=== PATIENT | male | born 1990 | race African-American/Black ===

== ENCOUNTER 2022-11-26 08:15 | Inpatient (IN) ==
[2022-11-26] MEDS ORDERED: SODIUM CHLORIDE 0.9% 1,000 ML IV STA (08:33)
[2022-11-26] MEDS ORDERED: hydrALAZINE 20 MG/1 ML VIAL IV STA (08:35)
[2022-11-26] MEDS ORDERED: LABETALOL 20 MG/4 ML SYRINGE IV STA ×2 (08:35→11:10)
[2022-11-26 08:38] LABS: Basophils % 0.5 % (0.0-0.8); Eosinophils # 0.1 10*3/uL (0.0-0.87); Eosinophils % 1.8 % (0.00-10.9); Hematocrit 32.9 VOL% (42.0-52.0); Hemoglobin 10.5 GM/DL (14.0-18.0); Immature Granulocytes % 0.5 %; Immature Granulocytes Absolute 0.03 #; Lymphocytes # 1.6 10*3/uL (1.4-4.0); Lymphocytes % 25.7 % (21.2-54.2); Mean Corpuscular HGB Conc 31.9 GM/DL (32-36); Mean Corpuscular Volume 102.2 FL (87-102); Mean Platelet Volume 10.4 FL (9.6-12.0); Monocytes # 0.5 10*3/uL (0.11-0.8); Monocytes % 8.1 % (1.7-12.7); Neutrophils % 63.4 % (38.7-73.9); Platelet Count 311 T/CUMM (130-400); Red Blood Count 3.22 MC/CUMM (3.8-5.5); Red Cell Distribution Width 16.2 % (9.3-17.3); White Blood Count 6.1 T/CUMM (4-12)
[2022-11-26 08:48] LABS: PT Patient Result 10.7 SECS (10.1-12.1); Partial Thromboplastin Time 25.7 SECS (23.7-32.9)
[2022-11-26 08:57] LABS: Albumin 3.9 G/DL (3.4-5.0); Bilirubin,Total 0.4 MG/DL (0.20-1.00); Calcium 9.6 MG/DL (8.5-10.1); Osmolality,Calculated 302.1 MOS/KG (273-304); Potassium 4.9 MMOL/L (3.5-5.1)
[2022-11-26] MEDS ORDERED: niCARdipine 25 MG/10 ML VIAL IV ONE (10:44)
[2022-11-26] MEDS: niCARdipine INJ 25 MG in SODIUM CHLORIDE 0.9% 240 ML IV PRN ×3 (10:52→23:19)
[2022-11-26] MEDS ORDERED: ALBUTEROL 2.5 MG/3 ML NEB RESP TX PRN (11:32)
[2022-11-26] MEDS ORDERED: ONDANSETRON 4 MG/2 ML VIAL IV PRN (11:33)
[2022-11-26] MEDS: PANTOPRAZOLE 40 MG VIAL IV SCH (12:34)
[2022-11-26] MEDS ORDERED: METOPROLOL TARTRATE 5 MG/5 ML VIAL IV PRN (14:33)
[2022-11-26] MEDS ORDERED: PROMETHAZINE 25 MG/1 ML VIAL IM ONE (14:34)
[2022-11-26] MEDS ORDERED: LORazepam 2 MG/1 ML VIAL IV PRN (14:35)
[2022-11-26] MEDS: amLODIPine 10 MG TABLET PO SCH (14:37)
[2022-11-26] MEDS ORDERED: BACLOFEN 10 MG TABLET PO SCH (15:00)
[2022-11-26 15:53] LABS: Hepatitis B Surface Ag Quant < 0.10 Index; Hepatitis B Surface Ag Result Non-Reactive (NonReactive); Hepatitis C Virus Ab Quant 0.08 Index; Hepatitis C Virus Ab Result Non-Reactive (NonReactive)
[2022-11-26] MEDS: LACTULOSE 20 GM/30 ML UDCUP PO SCH ×3 (16:08→20:15)
[2022-11-26] MEDS: SEVELAMER CARBONATE 800 MG TABLET PO SCH (16:09)
[2022-11-26] MEDS ORDERED: hydrALAZINE 20 MG/1 ML VIAL ONE (17:42)
[2022-11-26] MEDS: INSULIN LISPRO 100 UNIT/ML SUBCUT SCH (17:43)
[2022-11-26] MEDS: hydrALAZINE 20 MG/1 ML VIAL IV ONE ×2 (17:58→18:31)
[2022-11-26] MEDS: METOPROLOL TARTRATE 50 MG TABLET PO SCH (20:14)
[2022-11-26] MEDS: DOCUSATE SODIUM 100 MG CAPSULE PO SCH (20:14)
[2022-11-26] MEDS: CITALOPRAM 20 MG TABLET PO SCH (20:15)
[2022-11-26] MEDS: TRAVOPROST 0.004% OPH SOLN 2.5 ML BOTTLE BOTH EYES SCH (22:08)
[2022-11-27] MEDS: INSULIN LISPRO 100 UNIT/ML SUBCUT SCH ×4 (00:19→17:41)
[2022-11-27 05:23] LABS: Basophils % 0.4 % (0.0-0.8); Eosinophils # 0.1 10*3/uL (0.0-0.87); Eosinophils % 0.8 % (0.00-10.9); Hematocrit 32.1 VOL% (42.0-52.0); Hemoglobin 10.4 GM/DL (14.0-18.0); Immature Granulocytes % 0.4 %; Immature Granulocytes Absolute 0.03 #; Lymphocytes # 1.2 10*3/uL (1.4-4.0); Lymphocytes % 15.7 % (21.2-54.2); Mean Corpuscular HGB Conc 32.4 GM/DL (32-36); Mean Corpuscular Volume 102.9 FL (87-102); Mean Platelet Volume 10.2 FL (9.6-12.0); Monocytes # 0.8 10*3/uL (0.11-0.8); Monocytes % 11.1 % (1.7-12.7); Neutrophils % 71.6 % (38.7-73.9); Platelet Count 309 T/CUMM (130-400); Red Blood Count 3.12 MC/CUMM (3.8-5.5); Red Cell Distribution Width 16.5 % (9.3-17.3); White Blood Count 7.6 T/CUMM (4-12)
[2022-11-27 05:25] LABS: Arterial Base Excess iSTAT 6 MMOL/L (-2.5-2.5); Arterial Bicarbonate iSTAT 29.5 MMOL/L (20-26); Arterial O2 Saturation iSTAT 97 % (95-100); Arterial PCO2 iSTAT 39 MM HG (35-48); Arterial PO2 iSTAT 84 MM HG (80-95); Arterial Total CO2 iSTAT 31 MMO/L (23-27); Arterial pH iSTAT 7.484 (7.35-7.45)
[2022-11-27 06:09] LABS: Bilirubin,Total 0.5 MG/DL (0.20-1.00); Calcium 9.1 MG/DL (8.5-10.1); Osmolality,Calculated 290.3 MOS/KG (273-304); Potassium 4.4 MMOL/L (3.5-5.1); Risk Ratio 2.14; Thyroid Stimulating Hormone 1.45 uIU/ml (0.358-3.74); Total Protein 9.1 G/DL (6.4-8.2)
[2022-11-27] MEDS: niCARdipine INJ 25 MG in SODIUM CHLORIDE 0.9% 240 ML IV PRN (08:15)
[2022-11-27] MEDS: LACTULOSE 20 GM/30 ML UDCUP PO SCH ×2 (09:20→20:47)
[2022-11-27] MEDS: amLODIPine 10 MG TABLET PO SCH (09:20)
[2022-11-27] MEDS: ATORVASTATIN 20 MG TABLET PO SCH (09:20)
[2022-11-27] MEDS: buPROPion 75 MG TABLET PO SCH (09:21)
[2022-11-27] MEDS: ISOSORBIDE DINITRATE 10 MG TABLET PO SCH (09:21)
[2022-11-27] MEDS: DOCUSATE SODIUM 100 MG CAPSULE PO SCH ×2 (09:21→20:47)
[2022-11-27] MEDS: SEVELAMER CARBONATE 800 MG TABLET PO SCH ×3 (09:21→18:44)
[2022-11-27] MEDS: METOPROLOL TARTRATE 50 MG TABLET PO SCH ×2 (09:21→21:01)
[2022-11-27] MEDS: DORZOLAMIDE/TIMOLOL OPH SOLN 10 ML BOTTLE BOTH EYES SCH (09:22)
[2022-11-27] MEDS: PANTOPRAZOLE 40 MG VIAL IV SCH (11:43)
[2022-11-27] MEDS: POLYETHYLENE GLYCOL POWDER 17 GM PACK PO SCH (13:48)
[2022-11-27 13:56] LABS: % CD4 (T Cells) 30 % (32-64); % CD8 (T Cells) 51 % (15-40); 4/8 Ratio 0.6 (>=0.9)
[2022-11-27 13:56] LABS: % CD4 (T Cells) 31 % (32-64); % CD8 (T Cells) 48 % (15-40); 4/8 Ratio 0.6 (>=0.9)
[2022-11-27] MEDS: CITALOPRAM 20 MG TABLET PO SCH (20:47)
[2022-11-27] MEDS: TRAVOPROST 0.004% OPH SOLN 2.5 ML BOTTLE BOTH EYES SCH (20:50)
[2022-11-27] MEDS: MENTHOL/ZINC OXIDE OINT 71 GM JAR TOP SCH (20:51)
[2022-11-28] MEDS: INSULIN LISPRO 100 UNIT/ML SUBCUT SCH ×4 (00:35→18:30)
[2022-11-28 05:24] LABS: Albumin 3.4 G/DL (3.4-5.0); Bilirubin,Total 0.5 MG/DL (0.20-1.00); Calcium 9.1 MG/DL (8.5-10.1); Osmolality,Calculated 289.4 MOS/KG (273-304); Potassium 5.2 MMOL/L (3.5-5.1); Total Protein 7.7 G/DL (6.4-8.2)
[2022-11-28] MEDS: SEVELAMER CARBONATE 800 MG TABLET PO SCH ×3 (14:12→17:01)
[2022-11-28] MEDS: LACTULOSE 20 GM/30 ML UDCUP PO SCH ×2 (14:12→21:57)
[2022-11-28] MEDS: DOCUSATE SODIUM 100 MG CAPSULE PO SCH ×2 (14:12→21:52)
[2022-11-28] MEDS: PANTOPRAZOLE 40 MG VIAL IV SCH (14:12)
[2022-11-28] MEDS: buPROPion 75 MG TABLET PO SCH (14:13)
[2022-11-28] MEDS: ATORVASTATIN 20 MG TABLET PO SCH (14:13)
[2022-11-28] MEDS: ISOSORBIDE DINITRATE 10 MG TABLET PO SCH (14:15)
[2022-11-28] MEDS: DORZOLAMIDE/TIMOLOL OPH SOLN 10 ML BOTTLE BOTH EYES SCH (14:19)
[2022-11-28] MEDS: MENTHOL/ZINC OXIDE OINT 71 GM JAR TOP SCH ×2 (14:19→21:40)
[2022-11-28] MEDS: METOPROLOL TARTRATE 50 MG TABLET PO SCH ×2 (16:24→21:45)
[2022-11-28] MEDS: amLODIPine 10 MG TABLET PO SCH (16:24)
[2022-11-28] MEDS ORDERED: ACETAMINOPHEN 325 MG TABLET PO PRN (21:49)
[2022-11-28] MEDS: CITALOPRAM 20 MG TABLET PO SCH (21:52)
[2022-11-28] MEDS: TRAVOPROST 0.004% OPH SOLN 2.5 ML BOTTLE BOTH EYES SCH (22:20)
[2022-11-29] MEDS: INSULIN LISPRO 100 UNIT/ML SUBCUT SCH ×3 (00:14→11:38)
[2022-11-29 05:04] LABS: Basophils % 0.5 % (0.0-0.8); Eosinophils # 0.1 10*3/uL (0.0-0.87); Eosinophils % 1.3 % (0.00-10.9); Hematocrit 25.7 VOL% (42.0-52.0); Hemoglobin 8.2 GM/DL (14.0-18.0); Immature Granulocytes % 0.3 %; Immature Granulocytes Absolute 0.02 #; Lymphocytes # 2.2 10*3/uL (1.4-4.0); Lymphocytes % 34.2 % (21.2-54.2); Mean Corpuscular HGB Conc 31.9 GM/DL (32-36); Mean Corpuscular Volume 105.3 FL (87-102); Mean Platelet Volume 10.8 FL (9.6-12.0); Monocytes % 16.3 % (1.7-12.7); Neutrophils % 47.4 % (38.7-73.9); Platelet Count 192 T/CUMM (130-400); Red Blood Count 2.44 MC/CUMM (3.8-5.5); White Blood Count 6.4 T/CUMM (4-12)
[2022-11-29 05:23] LABS: Calcium 9.2 MG/DL (8.5-10.1); Osmolality,Calculated 293.3 MOS/KG (273-304); Potassium 4.6 MMOL/L (3.5-5.1)
[2022-11-29 05:57] LABS: Eosinophils 2 % (0-10); Hypochromia Slight; Lymphocytes 40 % (20-55); Platelet Estimate Adequate; Total Cells Counted 100
[2022-11-29] MEDS: buPROPion 75 MG TABLET PO SCH (09:29)
[2022-11-29] MEDS: ISOSORBIDE DINITRATE 10 MG TABLET PO SCH (09:30)
[2022-11-29] MEDS: SEVELAMER CARBONATE 800 MG TABLET PO SCH ×3 (09:30→17:57)
[2022-11-29] MEDS: DOCUSATE SODIUM 100 MG CAPSULE PO SCH (09:30)
[2022-11-29] MEDS: METOPROLOL TARTRATE 50 MG TABLET PO SCH (09:30)
[2022-11-29] MEDS: amLODIPine 10 MG TABLET PO SCH (09:31)
[2022-11-29] MEDS: DORZOLAMIDE/TIMOLOL OPH SOLN 10 ML BOTTLE BOTH EYES SCH (09:31)
[2022-11-29] MEDS: ATORVASTATIN 20 MG TABLET PO SCH (09:31)
[2022-11-29] MEDS: MENTHOL/ZINC OXIDE OINT 71 GM JAR TOP SCH (09:33)
[2022-11-29] MEDS: PANTOPRAZOLE 40 MG VIAL IV SCH (11:37)
[2022-11-29] MEDS: LACTULOSE 20 GM/30 ML UDCUP PO SCH (12:05)
[2022-11-29] MEDS: POLYETHYLENE GLYCOL POWDER 17 GM PACK PO SCH (13:28)
[2022-11-29 15:55] VITALS: BP 112/68
== END 2022-11-29 18:28 | DRG 304 ==
LOC: N.ED 08:15 → N.EDINP 11:32 → SUATTDRO 11:32 → N.CC 13:01 → N.3E 11-27 21:20
PROVIDERS: ADMIT Internal Medicine; ATTEND Hospitalist